=== PATIENT | female | born 1960 | race Caucasian/White ===

== ENCOUNTER 2017-09-13 20:23 | Emergency (ER) | payer OTHER ==
[~2017-09-13] VITALS: Ht 152.4 cm; Wt 559.8 kg
[2017-09-13 21:01] VITALS: BP 159/85; Ht 152.4 cm; Wt 559.8 kg
== END 2017-09-13 22:35 | disposition home or self-care (01) ==
LOC: ED 20:23
DX: S93.402A Sprain of unspecified ligament of left ankle, initial encounter (principal); X58.XXXA Exposure to other specified factors, initial encounter; Y93.89 Activity, other specified; Y92.89 Other specified places as the place of occurrence of the external cause; Y99.8 Other external cause status